=== PATIENT | female | born 1985 | race Caucasian/White ===

== ENCOUNTER 2020-06-06 06:08 | Inpatient (IN) ==
[2020-06-06] MEDS ORDERED: BUTORPHANOL 2 MG/ML VIAL IV PRN (06:14)
[2020-06-06] MEDS ORDERED: MEPERIDINE 50 MG/1 ML VIAL IV PRN (06:14)
[2020-06-06] MEDS ORDERED: ONDANSETRON 4 MG/2 ML VIAL IV PRN ×2 (06:14→10:36)
[2020-06-06] MEDS ORDERED: LACTATED RINGERS 500 ML IV PRN (06:14)
[2020-06-06] MEDS: LACTATED RINGERS 1,000 ML IV SCH ×2 (06:43→09:06)
[2020-06-06 07:19] LABS: Basophils % 0.2 % (0.0-0.8); Eosinophils # 0.2 10*3/uL (0.0-0.87); Eosinophils % 2.7 % (0.00-10.9); Hematocrit 35.1 VOL% (35.7-47.0); Hemoglobin 11.6 GM/DL (12.0-16.0); Immature Granulocytes % 0.4 %; Immature Granulocytes Absolute 0.04 #; Lymphocytes # 1.5 10*3/uL (1.4-4.0); Lymphocytes % 17.1 % (21.3-54.2); Mean Platelet Volume 10.6 FL (9.6-12.0); Monocytes % 9.6 % (1.7-12.7); Platelet Count 285 T/CUMM (130-400); Red Blood Count 3.51 MC/CUMM (3.8-5.5); Red Cell Distribution Width 13.8 % (9.3-17.3)
[2020-06-06 07:36] LABS: Alanine Aminotransferase 12 U/L (13-56); Albumin 2.6 G/DL (3.4-5.0); Alkaline Phosphatase 189 U/L (45-117); Aspartate Amino Transferase 13 U/L (0-37); Bilirubin,Total < 0.39 MG/DL (0.2-1.0); Blood Urea Nitrogen 10 MG/DL (7-18); Calcium 8.7 MG/DL (8.5-10.1); Carbon Dioxide 23 MMOL/L (21-32); Estimated Glom Filtration Rate 137 ML/MIN; Glucose 85 MG/DL (74-106); Potassium 3.8 MMOL/L (3.5-5.1); Sodium 136 MMOL/L (136-145); Total Protein 6.3 G/DL (6.4-8.2)
[2020-06-06] MEDS ORDERED: FAMOTIDINE 20 MG/2 ML VIAL IV ONE (08:38)
[2020-06-06] MEDS ORDERED: ceFAZolin 2,000 MG in PREMIX 1 EACH IV ONE (08:38)
[2020-06-06] MEDS ORDERED: CITRIC ACID/SODIUM CITRATE 30 ML UDCUP PO ONE (08:38)
[2020-06-06] MEDS ORDERED: OXYTOCIN/LR 20 UNIT/1,000 ML BAG IV ONE ×2 (08:40→10:36)
[2020-06-06] MEDS ORDERED: TRANEXAMIC ACID 1,000 MG/10 ML VIAL ONE (08:44)
[2020-06-06] MEDS ORDERED: miSOPROStoL 200 MCG TABLET ONE (08:44)
[2020-06-06] MEDS ORDERED: SODIUM CHLORIDE 0.9% 0 ML IV ONE (08:45)
[2020-06-06] MEDS ORDERED: METHYLERGONOVINE 0.2 MG/1 ML AMP ONE (08:45)
[2020-06-06] MEDS ORDERED: TERBUTALINE 1 MG/1 ML VIAL SUBCUT ONE (08:45)
[2020-06-06] MEDS ORDERED: CARBOPROST TROMETHAMINE 250 MCG/ML AMP IM ONE (08:45)
[2020-06-06] MEDS ORDERED: BUPIVACAINE SPINAL 0.75% 2 ML AMP SPINAL ONE (08:46)
[2020-06-06] MEDS ORDERED: ONDANSETRON 4 MG/2 ML VIAL ONE (08:46)
[2020-06-06] MEDS ORDERED: MORPHINE 10 MG/10 ML VIAL ONE (08:47)
[2020-06-06] MEDS ORDERED: fentaNYL 100 MCG/2 ML VIAL ONE (08:47)
[2020-06-06] MEDS ORDERED: BUPIVACAINE MPF 0.25% 30 ML VIAL ONE (10:13)
[2020-06-06] MEDS ORDERED: PHENYLEPHRINE 1 MG/10 ML SYRINGE IV ONE ×2 (10:13→10:27)
[2020-06-06 10:19] LABS: Cord Venous Blood HCO3 22.9 MMOL/L; Cord Venous Blood PCO2 43.2 MMHG; Cord Venous Blood PO2 28.9
[2020-06-06] MEDS ORDERED: DEXAMETHASONE 4 MG/1 ML VIAL ONE (10:27)
[2020-06-06] MEDS ORDERED: ACETAMINOPHEN 325 MG TABLET PO PRN (10:36)
[2020-06-06] MEDS ORDERED: RHO(D) IMMUNE GLOBULIN 300 MCG SYRINGE IM ONE (10:36)
[2020-06-06] MEDS ORDERED: MAGNESIUM HYDROXIDE SUSP 30 ML UDCUP PO PRN (10:36)
[2020-06-06 10:48] LABS: Bilirubin,Urine Negative (Negative); Blood, Urine Negative (Negative); Glucose,Urine (UA) Negative (Negative); Ketones,Urine Negative (Negative); Nitrite,Urine Negative (Negative); Protein,Urine Negative; Squamous Epithelial Cell,Urine Occasional /HPF (0-10); Urine Appearance CLEAR (Clear); Urine Color Colorless (Yellow); Urine Specific Gravity 1.005 (1.001-1.035); Urine Urobilinogen < 2.0 EU/DL (0.2-1.0); WBC,Urine <1 /HPF (0-6)
[2020-06-06] MEDS ORDERED: LACTATED RINGERS 1,000 ML IV SCH (11:00)
[2020-06-06] MEDS ORDERED: ceFAZolin 1,000 MG in SYRINGE 1 EACH IV SCH (11:00)
[2020-06-06] MEDS: IBUPROFEN 800 MG TABLET PO PRN ×2 (12:58→20:09)
[2020-06-06] MEDS: oxyCODONE/ACETAMINOPHEN 5-325 MG TABLET PO PRN ×2 (14:09→20:09)
[2020-06-06] MEDS: ceFAZolin 1,000 MG in SYRINGE 1 EACH IV SCH (17:50)
[2020-06-06 18:34] LABS: Basophils % 0.2 % (0.0-0.8); Hematocrit 29.5 VOL% (35.7-47.0); Hemoglobin 9.9 GM/DL (12.0-16.0); Immature Granulocytes % 0.6 %; Immature Granulocytes Absolute 0.09 #; Lymphocytes # 0.7 10*3/uL (1.4-4.0); Lymphocytes % 4.5 % (21.3-54.2); Mean Corpuscular HGB Conc 33.6 GM/DL (32-36); Mean Platelet Volume 10.4 FL (9.6-12.0); Monocytes % 2.6 % (1.7-12.7); Neutrophils % 92.1 % (38.7-73.9); Platelet Count 238 T/CUMM (130-400); Red Blood Count 2.98 MC/CUMM (3.8-5.5); Red Cell Distribution Width 13.7 % (9.3-17.3); White Blood Count 15.1 T/CUMM (4-12)
[2020-06-06 19:05] LABS: Lymphocytes 2 % (20-55); Segmented Neutrophils 96 % (50-85); Total Cells Counted 100
[2020-06-06 19:11] LABS: Platelet Estimate Adequate
[2020-06-06] MEDS: DOCUSATE SODIUM 100 MG CAPSULE PO SCH (20:10)
[2020-06-07] MEDS: ceFAZolin 1,000 MG in SYRINGE 1 EACH IV SCH (01:58)
[2020-06-07] MEDS: IBUPROFEN 800 MG TABLET PO PRN ×2 (05:41→18:40)
[2020-06-07 06:37] LABS: Basophils % 0.2 % (0.0-0.8); Eosinophils # 0.1 10*3/uL (0.0-0.87); Eosinophils % 0.8 % (0.00-10.9); Hematocrit 30.1 VOL% (35.7-47.0); Hemoglobin 10.1 GM/DL (12.0-16.0); Immature Granulocytes % 0.5 %; Immature Granulocytes Absolute 0.07 #; Lymphocytes # 2.4 10*3/uL (1.4-4.0); Lymphocytes % 16.4 % (21.3-54.2); Mean Corpuscular HGB Conc 33.6 GM/DL (32-36); Mean Corpuscular Volume 101.3 FL (87-102); Mean Platelet Volume 10.4 FL (9.6-12.0); Monocytes % 8.4 % (1.7-12.7); Neutrophils % 73.7 % (38.7-73.9); Platelet Count 258 T/CUMM (130-400); Red Blood Count 2.97 MC/CUMM (3.8-5.5); White Blood Count 14.5 T/CUMM (4-12)
[2020-06-07] MEDS: DOCUSATE SODIUM 100 MG CAPSULE PO SCH ×2 (08:42→21:10)
[2020-06-07] MEDS: MULTIVITAMIN (PRENATAL) TABLET PO SCH (08:42)
[2020-06-07] MEDS: oxyCODONE/ACETAMINOPHEN 5-325 MG TABLET PO PRN ×2 (09:22→18:40)
[2020-06-07] MEDS ORDERED: KETOROLAC 30 MG/1 ML VIAL IM ONE (13:30)
[2020-06-07] MEDS ORDERED: KETOROLAC 60 MG/2 ML VIAL IM ONE (14:00)
[2020-06-07] MEDS: SIMETHICONE CHEW 80 MG TABLET PO PRN (17:25)
[2020-06-07] MEDS ORDERED: KETOROLAC 30 MG/1 ML VIAL IM PRN (17:26)
[2020-06-08] MEDS ORDERED: BISACODYL 10 MG SUPP RECTAL PRN (01:24)
[2020-06-08] MEDS: SIMETHICONE CHEW 80 MG TABLET PO PRN ×2 (01:31→09:45)
[2020-06-08] MEDS: IBUPROFEN 800 MG TABLET PO PRN ×2 (01:31→09:45)
[2020-06-08] MEDS: oxyCODONE/ACETAMINOPHEN 5-325 MG TABLET PO PRN ×2 (01:32→09:45)
[2020-06-08] MEDS: DOCUSATE SODIUM 100 MG CAPSULE PO SCH (09:45)
[2020-06-08] MEDS: MULTIVITAMIN (PRENATAL) TABLET PO SCH (09:45)
[2020-06-08 11:49] VITALS: BP 105/69
== END 2020-06-08 11:20 | disposition home or self-care (01) | DRG 540 ==
LOC: N.LD 06:08 → N.OB 15:00
PROVIDERS: ADMIT Obstetrics & Gynecology; ATTEND Obstetrics & Gynecology
PROC: LDCSECT (ICD-10-PCS; 2020-06-06 08:45)